=== PATIENT | male | born 1985 | race Two or more races ===

== ENCOUNTER 2017-11-29 12:01 | Emergency (ER) | payer BC ==
[2017-11-29 12:35] LABS: BILIRUBIN,URINE NEGATIVE (NEG); CLARITY,URINE CLEAR; COLOR,URINE YELLOW; GLUCOSE,URINE NEGATIVE (NEG); NITRITE,URINE NEGATIVE (NEG); PH,URINE 6.5; PROTEIN,URINE 30 mg/dL (NEG-TRACE); UROBILINOGEN,URINE 0.2 mg/dL (0.2 mg/dL)
[2017-11-29 12:40] LABS: SQUAMOUS EPITHELIAL CELL,UR FEW /LPF
[2017-11-29 12:41] LABS: BACTERIA,URINE FEW /HPF (0-FEW); RBC,URINE 20-40 /HPF (0-2)
== END 2017-11-29 14:18 | disposition home or self-care (01) ==
LOC: ER 12:01
DX: R31.9 Hematuria, unspecified (principal)
CPT/HCPCS: 74176; 81001; 87491; 87591; 99285-25

== ENCOUNTER 2017-12-10 08:13 | Inpatient (IN) | payer BC ==
[2017-12-10 08:41] LABS: BILIRUBIN,URINE NEGATIVE (NEG); CLARITY,URINE CLEAR; COLOR,URINE YELLOW; GLUCOSE,URINE NEGATIVE (NEG); NITRITE,URINE NEGATIVE (NEG); PROTEIN,URINE 30 mg/dL (NEG-TRACE); UROBILINOGEN,URINE 0.2 mg/dL (0.2 mg/dL)
[2017-12-10 08:58] LABS: ADD MAN DIFF? NO; SQUAMOUS EPITHELIAL CELL,UR OCC /LPF
[2017-12-10 08:59] LABS: BACTERIA,URINE FEW /HPF (0-FEW); WBC,URINE OCC /HPF (0-4)
[2017-12-10 09:05] LABS: BASO % 0 % (0-3); EOS # 0.1 x10^3/uL (0.0-0.7); EOS % 1 % (0-3); HEMATOCRIT 43.3 % (39.0-53.0); HEMOGLOBIN 14.3 g/dL (13.0-17.5); LYMPH # 1.2 x10^3/uL (1.0-4.8); LYMPH % 14 % (24-48); MEAN CORPUSCULAR HEMOGLOBIN 27 pg (25-35); MEAN CORPUSCULAR HGB CONC 33 g/dL (31-37); MEAN CORPUSCULAR VOLUME 81 fL (79-100); MONO # 0.5 x10^3/uL (0.0-1.1); MONO % 6 % (0-9); NEUT # 6.8 x10^3uL (1.8-7.7); NEUT % 79 % (31-73); PLATELET COUNT 126 x10^3/uL (140-400); RED BLOOD COUNT 5.32 x10^6/uL (4.30-5.70); RED CELL DISTRIBUTION WIDTH 13.7 % (11.5-14.5); WHITE BLOOD COUNT 8.5 x10^3/uL (4.0-11.0)
[2017-12-10] MEDS: IV NORMAL SALINE 1000ML BAG 1,000 ML IV ×2 (09:09→17:20)
[2017-12-10] MEDS: TAMSULOSIN 0.4 MG CAP.ER.24H. PO ×2 (09:09→15:00)
[2017-12-10 09:14] LABS: BLOOD UREA NITROGEN 20 mg/dL (8-26); CALCIUM 9.1 mg/dL (8.5-10.1); CREATININE 0.9 mg/dL (0.7-1.3); GLUCOSE 118 mg/dL (70-99)
[2017-12-10 09:15] LABS: ANION GAP 9 (6-14); BUN/CREATININE RATIO 22 (6-20); CARBON DIOXIDE 25 mmol/L (21-32); CHLORIDE 105 mmol/L (98-107); GFR 97.8; POTASSIUM 4.3 mmol/L (3.5-5.1); SODIUM 139 mmol/L (136-145)
[2017-12-10 09:20] LABS: ALBUMIN 3.9 g/dL (3.4-5.0); ALBUMIN/GLOBULIN RATIO 1.2 (1.0-1.7); ALK PHOS 82 U/L (46-116); ALT (SGPT) 25 U/L (16-63); AST (SGOT) 23 U/L (15-37); TOTAL BILIRUBIN 0.7 mg/dL (0.2-1.0); TOTAL PROTEIN 7.1 g/dL (6.4-8.2)
[2017-12-10 09:31] LABS: CREATINE KINASE 191 U/L (39-308)
[2017-12-10] MEDS ORDERED: ONDANSETRON PF 4 MG/2 ML VIAL. IV (10:30)
[2017-12-10] MEDS ORDERED: MORPHINE SULFATE 4 MG/ML DISP.SYRIN. IV (10:30)
[2017-12-10] MEDS: CIPROFLOXACIN 400MG PREMIX 200 ML IV ×2 (10:45→20:59)
[2017-12-10] MEDS ORDERED: TAMSULOSIN 0.4 MG CAP.ER.24H. PO (11:00)
[2017-12-10] MEDS ORDERED: LIDO:MAALOX 1:1 20 ML SINGLE DOSE. PO (14:45)
[2017-12-10] MEDS: PANTOPRAZOLE IV PUSH 40 MG VIAL. IVP (17:21)
[2017-12-10] MEDS: ACETAMINOPHEN 325 MG TABLET. PO (20:58)
[2017-12-11 05:04] LABS: ADD MAN DIFF? NO
[2017-12-11 05:44] LABS: ALBUMIN 2.9 g/dL (3.4-5.0); ALK PHOS 63 U/L (46-116); ALT (SGPT) 19 U/L (16-63); ANION GAP 5 (6-14); AST (SGOT) 17 U/L (15-37); BLOOD UREA NITROGEN 11 mg/dL (8-26); BUN/CREATININE RATIO 12 (6-20); CARBON DIOXIDE 27 mmol/L (21-32); CHLORIDE 108 mmol/L (98-107); CREATININE 0.9 mg/dL (0.7-1.3); GFR 97.8; GLUCOSE 92 mg/dL (70-99); POTASSIUM 3.9 mmol/L (3.5-5.1); SODIUM 140 mmol/L (136-145); TOTAL BILIRUBIN 0.8 mg/dL (0.2-1.0); TOTAL PROTEIN 5.9 g/dL (6.4-8.2)
[2017-12-11] MEDS: CIPROFLOXACIN 400MG PREMIX 200 ML IV (08:26)
[2017-12-11] MEDS: ACETAMINOPHEN 325 MG TABLET. PO (08:26)
[2017-12-11] MEDS: TAMSULOSIN 0.4 MG CAP.ER.24H. PO (08:26)
[2017-12-11] MEDS: PANTOPRAZOLE IV PUSH 40 MG VIAL. IVP (08:26)
[2017-12-11 08:29] LABS: BASO % 1 % (0-3); EOS # 0.2 x10^3/uL (0.0-0.7); EOS % 4 % (0-3); HEMATOCRIT 38.7 % (39.0-53.0); HEMOGLOBIN 12.9 g/dL (13.0-17.5); LYMPH # 1.8 x10^3/uL (1.0-4.8); LYMPH % 32 % (24-48); MEAN CORPUSCULAR HEMOGLOBIN 27 pg (25-35); MEAN CORPUSCULAR HGB CONC 33 g/dL (31-37); MEAN CORPUSCULAR VOLUME 81 fL (79-100); MONO # 0.3 x10^3/uL (0.0-1.1); MONO % 6 % (0-9); NEUT # 3.3 x10^3uL (1.8-7.7); NEUT % 58 % (31-73); PLATELET COUNT 108 x10^3/uL (140-400); RED BLOOD COUNT 4.76 x10^6/uL (4.30-5.70); RED CELL DISTRIBUTION WIDTH 13.4 % (11.5-14.5); WHITE BLOOD COUNT 5.6 x10^3/uL (4.0-11.0)
[2017-12-11] MEDS ORDERED: LACTOBACILLUS RHAMNOSUS GG 1 CAPSULE. PO (21:00)
[2017-12-12] MEDS ORDERED: PANTOPRAZOLE 40 MG TABLET.DR. PO (07:30)
== END 2017-12-11 15:45 | disposition home or self-care (01) | DRG 392 ==
LOC: 4 NORTH 12:36 → ER 08:13 → 4 NORTH 10:18
DX: K52.9 Noninfective gastroenteritis and colitis, unspecified (principal); R31.9 Hematuria, unspecified; R33.9 Retention of urine, unspecified; Z82.49 Family history of ischemic heart disease and other diseases of the circulatory system
CPT/HCPCS: 36415; 74176; 80053; 81001; 82550; 85025; 99285; 99285-25; C9113; J0744; J3490; J7030